=== PATIENT | female | born 1995 | race Caucasian/White ===

== ENCOUNTER 2017-02-09 21:24 | Emergency (ER) | payer MEDICAID ==
[~2017-02-09] VITALS: Ht 152.4 cm; Wt 64.3 kg
[~2017-02-09 21:24] MED LIST: IBUP-1223 PO
[2017-02-09 22:01] LABS: HEMOGLOBIN 13.3 g/dL (11.7-16.4); WHITE BLOOD COUNT 5.5 x10^3/uL (3.4-10)
[2017-02-09 22:02] LABS: HCG UR LOT HCG7030192
[2017-02-09 22:12] LABS: HCG UR OBC PASS
[2017-02-09 22:15] LABS: BLOOD UREA NITROGEN 9 mg/dL (7-18)
[2017-02-09] MEDS ORDERED: AZITHROMYCIN 500 MG TABLET ONE (22:42)
[2017-02-09] MEDS ORDERED: CEFTRIAXONE 250 MG ONE (22:42)
[2017-02-09] MEDS ORDERED: AZITHROMYCIN 500 MG TABLET PO ONE (23:00)
[2017-02-09] MEDS ORDERED: CEFTRIAXONE 250 MG IM ONE (23:00)
[2017-02-09 23:01] VITALS: BP 114/74
== END 2017-02-09 23:04 | disposition home or self-care (01) ==
LOC: ED 22:58
DX: N76.0 Acute vaginitis (principal)
CPT/HCPCS: 36415; 80048; 81001; 81025; 82040; 84703; 85025; 87086; 87210; 87491; 87591; 87808; 96372; 99284; J0696

== ENCOUNTER 2017-06-21 21:44 | Emergency (ER) | payer MEDICAID ==
[~2017-06-21] VITALS: Ht 152.4 cm; Wt 68.6 kg
[2017-06-21] MEDS ORDERED: KETOROLAC 30 MG/1 ML ONE (22:22)
[2017-06-21] MEDS ORDERED: PHENAZOPYRIDINE 200 MG TABLET ONE (22:22)
[2017-06-21 22:30] LABS: MICROSCOPIC AUTO
[2017-06-21] MEDS ORDERED: PHENAZOPYRIDINE 200 MG TABLET PO ONE (22:30)
[2017-06-21] MEDS ORDERED: KETOROLAC 30 MG/1 ML IM ONE (22:30)
[2017-06-21 22:31] LABS: CULTURE INDICATED? YES
[2017-06-21 22:48] LABS: HCG UR SG 1.028 (1.003-1.030)
[2017-06-21] MEDS ORDERED: CEFTRIAXONE 1,000 MG ONE (22:49)
[2017-06-21] MEDS ORDERED: CEFTRIAXONE 1,000 MG IM ONE (23:00)
[2017-06-21 23:45] VITALS: BP 115/68
== END 2017-06-21 23:57 | disposition home or self-care (01) ==
LOC: ED 23:15
DX: N30.01 Acute cystitis with hematuria (principal); N12 Tubulo-interstitial nephritis, not specified as acute or chronic
CPT/HCPCS: 74176; 81001; 81025; 87086; 96372; 99285; J0696; J1885